=== PATIENT | female | born 1995 | race Caucasian/White ===

== ENCOUNTER 2016-09-13 12:08 | Emergency (ER) | payer MEDICAID ==
[2016-09-13 12:13] VITALS: BP 110/70; BMI 21.9
--- NOTE | 2016-09-13 13:40 | DR.GENAD ---
HPI - PCP Primary Care Physician: none - Complaint/Symptoms Chief Complaint Doctors Comments: History as stated. Chief Complaint:: "it hurts when I pee" - Source History Provided: Patient - Mode of Arrival Mode of Arrival: Ambulatory - Timing Onset of Chief Complaint: 09/07/16 PMH - PMH Past Medical History: Yes Past Medical History: Depression Past Surgical History: No - Family History History of Family Medical Conditions: Yes Family Medical History: Diabetes Mellitus - Social History Does patient currently use any type of tobacco product: No Have you used tobacco products in the last 12 months: No Type of Tobacco Use: None Does any household member use tobacco: No Alcohol Use: None Do you use any recreational Drugs:: No Lives With: Family Lives Where: Home - infectious screening In the last 2 months have you had wt loss of >10#?: NO Have you had fever, night sweats or hemotysis?: No Have you traveled outside the country in the last 6 months?: No Isolation: Standard ROS - Review of Systems Constitutional: No Symptoms Reported Eyes: No Symptoms Reported ENTM: No Symptoms Reported Respiratoy: No Symptoms Reported Cardiovascular: No Symptoms Reported Genitourinary: Dysuria, Pain. negative: Discharge Neurological: No Symptoms Reported Musculoskeletal: No Symptoms Reported Integumentary: No Symptoms Reported Hematologic/Lymphatic: No Symptoms Reported Endocrine: No Symptoms Reported Psychiatric: No Symptoms Reported All Other Systems: Reviewed and Negative PE - Vital Signs Vitals: Temperature 98.1 F Pulse Rate 100 Respiratory Rate 18 Blood Pressure [Left Arm] 123/78 Blood Pressure [Right Arm] 112/72 Blood Pressure 110/70 O2 Sat by Pulse Oximetry 99 - General Limitations: No Limitations General Appearance: Alert, In No Apparent Distress - Head Head Exam: Normal Inspection, Atraumatic - Eyes Eye exam: Normal Appearance, PERRL, EOMI - ENT ENT Exam: Normal Exam External Ear Exam: Normal External Inspection TM/Canal Exam: Bilateral Normal Nose Exam: Normal Nose Exam Mouth Exam: Normal Inspection Throat Exam: Normal Inspection - Neck Neck Exam: Normal Inspection - Chest Chest Inspection: Normal Inspection - Respiratory Respiratory Exam: Normal Lung Sounds Bilat Respiratory Exam: Bilateral Clear to Auscultation - Cardiovascular Cardiovascular Exam: Regular Rate, Normal Rhythm - Abdominal Exam Abdominal Exam: Normal Inspection Abdominal Tenderness: negative: RUQ, RLQ, LUQ, LLQ, Epigastrium, Suprapubic, Diffuse, Mild, Moderate, Severe, Other - Extremities Extremities Exam: Normal Inspection, Full ROM - Back Back Exam: Normal Inspection - Neurologic Neurological Exam: Alert, Oriented X3, CN II-XII Intact - Psychiatric Psychiatric Exam: Normal Affect, Normal Mood - Skin Skin Exam: Warm, Dry, Intact ROR - Labs Reviewed Laboratory Results Reviewed?: Yes (Urine: 4+ bld;3+leukocytes,wbc 25-50,rbc 6- 10 nitrite pos) Laboratory: Specimen Type Clean catch urine 09/13/16 13:50 Urine Color Yellow (YELLOW) 09/13/16 13:50 Urine Appearance Cloudy (CLEAR) 09/13/16 13:50 Urine pH 6.0 (5.0 - 8.0) 09/13/16 13:50 Ur Specific [place] 1.020 (1.000-1.030) 09/13/16 13:50 Urine Protein 2+ (NEGATIVE) 09/13/16 13:50 Urine Glucose (UA) Negative (NEGATIVE) 09/13/16 13:50 Urine Ketones Negative (NEGATIVE) 09/13/16 13:50 Urine Occult Blood 3+ (NEGATIVE) 09/13/16 13:50 Urine Nitrite Positive (NEGATIVE) 09/13/16 13:50 Urine Bilirubin Negative (NEGATIVE) 09/13/16 13:50 Urine Urobilinogen 1+ (NORMAL) 09/13/16 13:50 Ur Leukocyte Esterase 3+ (NEGATIVE) 09/13/16 13:50 Urine RBC 6-10 /HPF (NEGATIVE) 09/13/16 13:50 Urine WBC 25-50 /HPF (NEGATIVE) 09/13/16 13:50 Ur Squamous Epith Cells Moderate /HPF (NEGATIVE) 09/13/16 13:50 Urine Bacteria 4+ /HPF (NEGATIVE) 09/13/16 13:50 Urine Mucus Few /HPF (NEGATIVE) 09/13/16 13:50 Ur Culture Indicated? Yes/culture set up 09/13/16 13:50 - Diagnosis Discharge Problem: UTI (urinary tract infection) Qualifiers: Urinary tract infection type: acute cystitis Hematuria presence: with hematuria Qualified Code(s): N30.01 - Acute cystitis with hematuria - Discharge Plan Condition: Stable - Follow ups/Referrals Follow ups/Referrals: NFD,None [Primary Care Provider] - 3 days - Instructions
[2016-09-13 14:01] LABS: BILIRUBIN,URINE NEGATIVE (NEGATIVE); BLOOD/HEMOGLOBIN,URINE 3+ (NEGATIVE); GLUCOSE, URINE NEGATIVE (NEGATIVE); KETONES,URINE NEGATIVE (NEGATIVE); LEUKOCYTE ESTERASE ,URINE 3+ (NEGATIVE); NITRITES,URINE POSITIVE (NEGATIVE); PROTEIN,URINE 2+ (NEGATIVE); UROBILINOGEN,URINE 1+ (NORMAL)
[2016-09-13 14:17] LABS: APPEARANCE,URINE CLOUDY (CLEAR); BACTERIA,URINE 4+ /HPF (NEGATIVE); COLOR,URINE YELLOW (YELLOW); MUCUS,URINE FEW /HPF (NEGATIVE); SQUAMOUS EPITHELIAL CELL,UR MODERATE /HPF (NEGATIVE)
== END 2016-09-13 14:49 | disposition home or self-care (01) ==
LOC: ER 12:47
DX: N30.01 Acute cystitis with hematuria (principal); B96.29 Other Escherichia coli [E. coli] as the cause of diseases classified elsewhere
CPT/HCPCS: 81001; 87086; 87088; 87186; 99282

== ENCOUNTER 2016-10-27 21:43 | Emergency (ER) | payer MEDICAID ==
[2016-10-27 21:45] VITALS: BP 110/70
[2016-10-27 21:53] VITALS: BMI 19.7
[2016-10-27] MEDS ORDERED: NS 1000 ML 1,000 ML IV ONE (22:11)
--- NOTE | 2016-10-27 22:11 | DR.GENAD ---
HPI - PCP Primary Care Physician: ESPINOZA - Complaint/Symptoms Chief Complaint Doctors Comments: Patient admits to diarrhea most of the day. now wit6h skin rash. Denies fever or vomiting. Chief Complaint:: "SONALI BEEN HURTIN IN MY STOMACH AND HAVING DIARRHEA AND NOW I THINK I MUST HAVE A RASH ON MY BOTTOM BECAUSE IT BEEN HURTING." - Source History Provided: Patient - Mode of Arrival Mode of Arrival: Ambulatory - Timing Onset of Chief Complaint: 10/24/16 PMH - PMH Past Medical History: Yes Past Medical History: Depression Past Surgical History: No - Family History History of Family Medical Conditions: Yes Family Medical History: Diabetes Mellitus - Social History Alcohol Use: None Do you use any recreational Drugs:: No Lives Where: Home - infectious screening Have you traveled outside the country in the last 6 months?: No ROS - Review of Systems Eyes: No Symptoms Reported ENTM: No Symptoms Reported Respiratoy: No Symptoms Reported Cardiovascular: No Symptoms Reported Gastrointestinal/Abdominal: See HPI, Diarrhea Genitourinary: No Symptoms Reported Neurological: No Symptoms Reported Musculoskeletal: No Symptoms Reported Integumentary: No Symptoms Reported Hematologic/Lymphatic: No Symptoms Reported Endocrine: No Symptoms Reported Psychiatric: No Symptoms Reported All Other Systems: Reviewed and Negative PE - Vital Signs Vitals: Temperature 98.2 F Pulse Rate 83 Respiratory Rate 18 Blood Pressure [Left Arm] 123/78 Blood Pressure [Right Arm] 112/72 Blood Pressure 110/70 O2 Sat by Pulse Oximetry 98 - General General Appearance: Alert, In No Apparent Distress - Head Head Exam: Normal Inspection, Atraumatic - Eyes Eye exam: Normal Appearance, PERRL, EOMI - ENT ENT Exam: Normal Exam External Ear Exam: Normal External Inspection TM/Canal Exam: Bilateral Normal Nose Exam: Normal Nose Exam Mouth Exam: Normal Inspection Throat Exam: Normal Inspection - Neck Neck Exam: Normal Inspection - Chest Chest Inspection: Normal Inspection - Respiratory Respiratory Exam: Normal Lung Sounds Bilat Respiratory Exam: Bilateral Clear to Auscultation - Cardiovascular Cardiovascular Exam: Regular Rate, Normal Rhythm - Abdominal Exam Abdominal Exam: Normal Inspection Abdominal Tenderness: negative: RUQ, RLQ, LUQ, LLQ, Epigastrium, Suprapubic, Diffuse, Mild, Moderate, Severe, Other - Extremities Extremities Exam: Normal Inspection, Full ROM - Back Back Exam: Normal Inspection, Full ROM - Neurologic Neurological Exam: Alert, Oriented X3, CN II-XII Intact - Psychiatric Psychiatric Exam: Normal Affect - Skin Skin Exam: Warm, Dry, Intact ROR - Labs Reviewed Laboratory Results Reviewed?: Yes (Urine: 2+ketones;wbc 20-25,nitrite+ 3+leuk) Result Diagrams: 10/27/16 22:10/27/16 22: Laboratory: WBC 12.3 X10^3/uL (3.6-10.0) H 10/27/16 22: RBC 5.05 X10^6/uL (3.5-5.4) 10/27/16 22: Hgb 13.8 g/dL (12.0-16.0) 10/27/16: Hct 41.3 % (36.0-47.0) 10/27/16: MCV 81.8 fL (80.0-100.0) 10/27/16 22: MCH 27.3 pg (27.0-34.0) 10/27/16: MCHC 33.3 g/dL (33.0-35.0) 10/27/16 22: RDW 13.9 % (11.6-16.5) 10/27/16: Plt Count 335 X10^3/uL (150.0-450.0) 10/27/16: MPV 8.6 fL (7.4-11.0) 10/27/16 22: Neut % 62.9 % (42.0-75.0) 10/27/16: Lymph % 26.8 % (21.0-51.0) 10/27/16 22: [place] % 8.7 % (0.0-13.0) 10/27/16 22: Eos % 1.2 % (0.9-2.9) 10/27/16: Baso % 0.4 % (0.2-1.0) 10/27/16: Neut # 7.7 x10^3/uL (2.2-4.8) H 10/27/16 22: Lymph # 3.3 X10^3/uL (1.3-2.9) H 10/27/16 22: [place] # 1.1 x10^3/uL (0.3-0.8) H 10/27/16 22:27 Eos # 0.2 x10^3/uL (0.0-0.2) 10/27/16 22:27 Baso # 0.0 X10^3/uL (0.0-0.1) 10/27/16 22:27 Absolute Nucleated RBC 0.0 /100WBC 10/27/16 22:27 Sodium 140 mmol/L (136-145) 10/27/16 22:27 Corrected Sodium TNP 10/27/16 22:27 Potassium 3.7 mmol/L (3.5-5.1) 10/27/16 22:27 Chloride 103 mmol/L (98-107) 10/27/16 22:27 Carbon Dioxide 27.7 mmol/L (21-32) 10/27/16 22:27 BUN 13 mg/dL (7-18) 10/27/16 22:27 Creatinine 0.78 mg/dL (0.55-1.02) 10/27/16 22:27 Est GFR (MDRD) Af Amer > 60 (>60) 10/27/16 22:27 Est GFR (MDRD) Non-Af > 60 (>60) 10/27/16 22:27 Glucose 98 mg/dL (65-99) 10/27/16 22:27 Calcium 9.1 mg/dL (8.5-10.1) 10/27/16 22:27 Specimen Type Clean catch urine 10/27/16 22:34 Urine Color Dark yellow (YELLOW) 10/27/16 22:34 Urine Appearance Cloudy (CLEAR) 10/27/16 22:34 Urine pH 5.0 (5.0 - 8.0) 10/27/16 22:34 Ur Specific [employer] 1.025 (1.000-1.030) 10/27/16 22:34 Urine Protein 2+ (NEGATIVE) 10/27/16 22:34 Urine Glucose (UA) Negative (NEGATIVE) 10/27/16 22:34 Urine Ketones 2+ (NEGATIVE) 10/27/16 22:34 Urine Occult Blood 3+ (NEGATIVE) 10/27/16 22:34 Urine Nitrite Positive (NEGATIVE) 10/27/16 22:34 Urine Bilirubin 2+ (NEGATIVE) 10/27/16 22:34 Urine Urobilinogen 3+ (NORMAL) 10/27/16 22:34 Ur Leukocyte Esterase 3+ (NEGATIVE) 10/27/16 22:34 Urine RBC 15-20 /HPF (NEGATIVE) 10/27/16 22:34 Urine WBC 20-25 /HPF (NEGATIVE) 10/27/16 22:34 Ur Squamous Epith Cells Moderate /HPF (NEGATIVE) 10/27/16 22:34 Urine Bacteria 2+ /HPF (NEGATIVE) 10/27/16 22:34 Ur Culture Indicated? Yes/culture set up 10/27/16 22:34 H. pylori IgG Antibody Negative (NEGATIVE) 10/27/16 22:27 - Diagnosis Discharge Problem: Dehydration UTI (urinary tract infection) Qualifiers: Urinary tract infection type: acute cystitis Hematuria presence: with hematuria Qualified Code(s): N30.01 - Acute cystitis with hematuria Dermatitis, contact Qualifiers: Contact dermatitis type: irritant Contact dermatitis trigger: solvent Qualified Code(s): L24.2 - Irritant contact dermatitis due to solvents - Discharge Plan Condition: Stable - Follow ups/Referrals Follow ups/Referrals: NEETA ESPINOZA [Primary Care Provider] - 3 days - Instructions
[2016-10-27] MEDS ORDERED: NS 1000 ML 1,000 ML ONE (22:12)
[2016-10-27] MEDS ORDERED: BENTYL CAP 10 MG PO ONE ×2 (22:14→22:23)
[2016-10-27 22:36] LABS: BASOPHILS % (AUTO) 0.4 % (0.2-1.0); EOSINOPHILS # (AUTO) 0.2 x10^3/uL (0.0-0.2); EOSINOPHILS % (AUTO) 1.2 % (0.9-2.9); HEMATOCRIT 41.3 % (36.0-47.0); HEMOGLOBIN 13.8 g/dL (12.0-16.0); LYMPHOCYTES # (AUTO) 3.3 X10^3/uL (1.3-2.9); LYMPHOCYTES % (AUTO) 26.8 % (21.0-51.0); MEAN CORPUSCULAR HEMOGLOBIN 27.3 pg (27.0-34.0); MEAN CORPUSCULAR HGB CONC 33.3 g/dL (33.0-35.0); MEAN CORPUSCULAR VOLUME 81.8 fL (80.0-100.0); MEAN PLATELET VOLUME 8.6 fL (7.4-11.0); MONOCYTES # (AUTO) 1.1 x10^3/uL (0.3-0.8); MONOCYTES % (AUTO) 8.7 % (0.0-13.0); NEUTROPHILS # (AUTO) 7.7 x10^3/uL (2.2-4.8); NEUTROPHILS % (AUTO) 62.9 % (42.0-75.0); PLATELET COUNT 335 X10^3/uL (150.0-450.0); RED BLOOD COUNT 5.05 X10^6/uL (3.5-5.4); RED CELL DISTRIBUTION WIDTH 13.9 % (11.6-16.5); WHITE BLOOD COUNT 12.3 X10^3/uL (3.6-10.0)
[2016-10-27 22:39] LABS: BILIRUBIN,URINE 2+ (NEGATIVE); BLOOD/HEMOGLOBIN,URINE 3+ (NEGATIVE); GLUCOSE, URINE NEGATIVE (NEGATIVE); KETONES,URINE 2+ (NEGATIVE); LEUKOCYTE ESTERASE ,URINE 3+ (NEGATIVE); NITRITES,URINE POSITIVE (NEGATIVE); PROTEIN,URINE 2+ (NEGATIVE); UROBILINOGEN,URINE 3+ (NORMAL)
[2016-10-27 22:42] LABS: BLOOD UREA NITROGEN 13 mg/dL (7-18); CALCIUM 9.1 mg/dL (8.5-10.1); CARBON DIOXIDE 27.7 mmol/L (21-32); CHLORIDE 103 mmol/L (98-107); CREATININE 0.78 mg/dL (0.55-1.02); GLUCOSE 98 mg/dL (65-99); SODIUM 140 mmol/L (136-145); eGFR BLACK RACES > 60 (>60); eGFR NON BLACK RACES > 60 (>60)
[2016-10-27 22:46] LABS: APPEARANCE,URINE CLOUDY (CLEAR); BACTERIA,URINE 2+ /HPF (NEGATIVE); COLOR,URINE DARK YELLOW (YELLOW); RBC,URINE 15-20 /HPF (NEGATIVE); SQUAMOUS EPITHELIAL CELL,UR MODERATE /HPF (NEGATIVE)
[2016-10-27] MEDS ORDERED: BACTRIM DS TAB PO ONE ×2 (23:02→23:08)
[2016-10-27] MEDS ORDERED: BUTT CREAM (COMPOUND) TOP PRN (23:05)
[2016-10-27] MEDS ORDERED: BUTT CREAM (COMPOUND) ONE (23:09)
== END 2016-10-28 00:02 | disposition home or self-care (01) ==
LOC: ER 22:01
DX: N30.01 Acute cystitis with hematuria (principal); L24.2 Irritant contact dermatitis due to solvents; E86.0 Dehydration; B96.29 Other Escherichia coli [E. coli] as the cause of diseases classified elsewhere
CPT/HCPCS: 36415; 80048; 81001; 85025; 86677; 87086; 87088; 87186; 96365; 99283; A4222

== ENCOUNTER 2016-12-13 14:03 | Emergency (ER) | payer MEDICAID ==
[2016-12-13 14:11] VITALS: BP 108/69; BMI 19.9
--- NOTE | 2016-12-13 14:47 | DR.GENAD ---
HPI - PCP Primary Care Physician: espinoza - Complaint/Symptoms Chief Complaint Doctors Comments: Patient with a history of constipation Chief Complaint:: " I DON'T USE THE BATHROOM REGULAR AND I FELT WARM." Self Treatment fo Chief Complaint: NONE - Source History Provided: Patient - Mode of Arrival Mode of Arrival: Ambulatory - Timing Onset of Chief Complaint: 12/12/16 PMH - PMH Past Medical History: Yes Past Medical History: Depression Past Medical History Comment: CONSTAPATION Past Surgical History: No - Family History History of Family Medical Conditions: No Family Medical History: Diabetes Mellitus - Social History Does patient currently use any type of tobacco product: No Have you used tobacco products in the last 12 months: No Type of Tobacco Use: None Does any household member use tobacco: No Alcohol Use: None Do you use any recreational Drugs:: No Lives With: Friend Lives Where: Home - infectious screening In the last 2 months have you had wt loss of >10#?: NO Have you had fever, night sweats or hemotysis?: No Have you traveled outside the country in the last 6 months?: No ROS - Review of Systems Eyes: No Symptoms Reported ENTM: No Symptoms Reported Respiratoy: No Symptoms Reported Cardiovascular: No Symptoms Reported Gastrointestinal/Abdominal: Abdominal Pain, Constipation Genitourinary: No Symptoms Reported Neurological: No Symptoms Reported Musculoskeletal: No Symptoms Reported Integumentary: No Symptoms Reported Hematologic/Lymphatic: No Symptoms Reported Endocrine: No Symptoms Reported Psychiatric: No Symptoms Reported All Other Systems: Reviewed and Negative PE - Vital Signs Vitals: Temperature 98.1 F Pulse Rate 99 Respiratory Rate 20 Blood Pressure [Left Arm] 123/78 Blood Pressure [Right Arm] 112/72 Blood Pressure 108/69 O2 Sat by Pulse Oximetry 98 - General Limitations: No Limitations General Appearance: Alert, In No Apparent Distress - Head Head Exam: Normal Inspection, Atraumatic - Eyes Eye exam: Normal Appearance, PERRL, EOMI - ENT ENT Exam: Normal Exam, Normal Oropharynx External Ear Exam: Normal External Inspection TM/Canal Exam: Bilateral Normal Nose Exam: Normal Nose Exam Mouth Exam: Normal Inspection Throat Exam: Normal Inspection - Neck Neck Exam: Normal Inspection, Full ROM - Chest Chest Inspection: Normal Inspection - Respiratory Respiratory Exam: Normal Lung Sounds Bilat Respiratory Exam: Bilateral Clear to Auscultation - Cardiovascular Cardiovascular Exam: Regular Rate, Normal Rhythm - Abdominal Exam Abdominal Exam: Normal Inspection Abdominal Tenderness: Other (palbable mass LLQ). negative: RUQ, RLQ, LUQ, LLQ, Epigastrium, Suprapubic, Diffuse, Mild, Moderate, Severe - Extremities Extremities Exam: Normal Inspection - Back Back Exam: Normal Inspection, Full ROM - Neurologic Neurological Exam: Alert, Oriented X3, CN II-XII Intact - Psychiatric Psychiatric Exam: Normal Affect, Normal Mood - Skin Skin Exam: Warm, Dry, Intact ROR - XRAY XRAY Interpreted by: Radiologist (Abdomen:No evidence for acute abdominal pathology identified. Severe constipation with a very large amount of stool distending the rectum.) - Diagnosis Discharge Problem: Constipation Qualifiers: Constipation type: slow transit constipation Qualified Code(s): K59.01 - Slow transit constipation - Discharge Plan Condition: Good - Follow ups/Referrals Follow ups/Referrals: FATIMAH ESPINOZA [Primary Care Provider] - 3 days - Instructions
--- NOTE | 2016-12-13 15:23 | RAD ---
HISTORY: Abdominal pain Study: KUB Comparison: June 09, 2014 Findings: Evaluation of the abdomen demonstrates a normal bowel gas pattern. there is an extremely large stool load a present involving the entire colon but most prominently a massive amount of stool within the r ectum. No pathological soft tissue mass or calcification can be observed. The bony structures are g rossly intact. IMPRESSION: 1. No evidence for acute abdominal pathology identified. 2. Severe constipation with a a very large amount of stool distending the rectum. Reported By:
== END 2016-12-13 16:02 | disposition home or self-care (01) ==
LOC: ER 14:17
DX: K59.01 Slow transit constipation (principal)
CPT/HCPCS: 74000; 99282

== ENCOUNTER 2017-02-27 20:19 | Emergency (ER) | payer MEDICAID ==
[2017-02-27 20:27] VITALS: BP 114/72; BMI 20.8
--- NOTE | 2017-02-27 21:36 | DR.GENAD ---
HPI - PCP Primary Care Physician: GERALDO - Complaint/Symptoms Chief Complaint Doctors Comments: Patient presents with complaint of having two diarrheal stools per day for the past four days. She is applying tripple antibiotic ointment but it is not helping. The skin stark s/p bowel movement. Chief Complaint:: RASH ON BUTT AFTER DIAHRREA Self Treatment fo Chief Complaint: ANTIBIOTIC OINTMENT; IBUPROFEN - Source History Provided: Patient - Mode of Arrival Mode of Arrival: Ambulatory - Timing Onset of Chief Complaint: 02/24/17 PMH - PMH Past Medical History: No Past Medical History: Depression Past Surgical History: No - Family History History of Family Medical Conditions: No Family Medical History: Diabetes Mellitus - Social History Type of Tobacco Use: None Does any household member use tobacco: No Alcohol Use: None Do you use any recreational Drugs:: No Lives With: Family - infectious screening In the last 2 months have you had wt loss of >10#?: NO Have you had fever, night sweats or hemotysis?: No Have you traveled outside the country in the last 6 months?: No Isolation: Standard ROS - Review of Systems Eyes: No Symptoms Reported ENTM: No Symptoms Reported Respiratoy: No Symptoms Reported Cardiovascular: No Symptoms Reported Gastrointestinal/Abdominal: No Symptoms Reported Genitourinary: No Symptoms Reported Neurological: No Symptoms Reported Musculoskeletal: No Symptoms Reported Integumentary: No Symptoms Reported Hematologic/Lymphatic: No Symptoms Reported Endocrine: No Symptoms Reported Psychiatric: No Symptoms Reported All Other Systems: Reviewed and Negative PE - Vital Signs Vitals: Temperature 99.7 F Pulse Rate 125 Respiratory Rate 20 Blood Pressure [Left Arm] 123/78 Blood Pressure [Right Arm] 112/72 Blood Pressure 114/72 O2 Sat by Pulse Oximetry 99 - General Limitations: No Limitations General Appearance: Alert - Head Head Exam: Normal Inspection, Atraumatic - Eyes Eye exam: Normal Appearance, PERRL, EOMI - ENT ENT Exam: Normal Exam External Ear Exam: Normal External Inspection, Auricular Hematoma TM/Canal Exam: Bilateral Normal Nose Exam: Normal Nose Exam Mouth Exam: Normal Inspection Throat Exam: Normal Inspection - Neck Neck Exam: Normal Inspection, Full ROM - Chest Chest Inspection: Normal Inspection - Respiratory Respiratory Exam: Normal Lung Sounds Bilat Respiratory Exam: Bilateral Clear to Auscultation - Cardiovascular Cardiovascular Exam: Regular Rate - Abdominal Exam Abdominal Exam: Normal Inspection Abdominal Tenderness: negative: RUQ, RLQ, LUQ, LLQ, Epigastrium, Suprapubic, Diffuse, Mild, Moderate, Severe, Other - Extremities Extremities Exam: Normal Inspection, Full ROM - Back Back Exam: Normal Inspection - Neurologic Neurological Exam: Alert, Oriented X3, CN II-XII Intact - Psychiatric Psychiatric Exam: Normal Affect - Skin Skin Exam: Warm, Dry, Intact - Diagnosis Discharge Problem: Acute diarrhea Contact dermatitis Qualifiers: Contact dermatitis type: irritant Contact dermatitis trigger: other trigger Qualified Code(s): L24.89 - Irritant contact dermatitis due to other agents; L24.8 - Irritant contact dermatitis due to other agents - Discharge Plan Condition: Stable - Follow ups/Referrals Follow ups/Referrals: Jayy Cash [Primary Care Provider] - 3 days - Instructions
[2017-02-27] MEDS ORDERED: SILVADENE ONE (21:42)
[2017-02-27] MEDS ORDERED: SILVADENE TOP SCH (22:00)
== END 2017-02-27 21:46 | disposition home or self-care (01) ==
LOC: ER 20:30
DX: L24.89 Irritant contact dermatitis due to other agents (principal); R19.7 Diarrhea, unspecified
CPT/HCPCS: 99282

== ENCOUNTER 2017-05-17 23:28 | Emergency (ER) | payer MEDICAID ==
[2017-05-17 23:33] VITALS: BMI 21.9
[2017-05-18] MEDS ORDERED: TORADOL 30 MG VIAL IVP ONE (00:34)
[2017-05-18] MEDS ORDERED: NS 1000 ML 1,000 ML ONE ×2 (00:36→01:28)
[2017-05-18] MEDS ORDERED: TORADOL 30 MG VIAL ONE (00:36)
--- NOTE | 2017-05-18 00:37 | DR.GENAD ---
HPI - PCP Primary Care Physician: JAYY CHOW - Complaint/Symptoms Chief Complaint Doctors Comments: Patient presents with generalized muscle aches and pain; fever, nausea. Chief Complaint:: HEAD & CHEST HURTING; COUGHING; THROWING; FEVER (101.9) - Source History Provided: Patient - Mode of Arrival Mode of Arrival: Ambulatory - Timing Onset of Chief Complaint: 05/16/17 PMH - PMH Past Medical History: No Past Medical History: Depression Past Surgical History: No - Family History History of Family Medical Conditions: No Family Medical History: Diabetes Mellitus - Social History Alcohol Use: None Do you use any recreational Drugs:: No Lives With: Family - infectious screening In the last 2 months have you had wt loss of >10#?: NO Have you had fever, night sweats or hemotysis?: No Have you traveled outside the country in the last 6 months?: No Isolation: Standard ROS - Review of Systems Eyes: No Symptoms Reported ENTM: No Symptoms Reported Respiratoy: No Symptoms Reported Cardiovascular: No Symptoms Reported Gastrointestinal/Abdominal: No Symptoms Reported Genitourinary: No Symptoms Reported Neurological: No Symptoms Reported Musculoskeletal: No Symptoms Reported Integumentary: No Symptoms Reported Hematologic/Lymphatic: No Symptoms Reported Endocrine: No Symptoms Reported Psychiatric: No Symptoms Reported All Other Systems: Reviewed and Negative PE - Vital Signs Vitals: Temperature 99.2 F Pulse Rate [Left Radial] 134 Pulse Rate 138 Respiratory Rate 18 Blood Pressure [Left Arm] 98/53 Blood Pressure [Right Arm] 112/72 Blood Pressure 89/51 O2 Sat by Pulse Oximetry 100 - General General Appearance: In No Apparent Distress, Other (ill appearing) - Head Head Exam: Normal Inspection, Atraumatic - Eyes Eye exam: Normal Appearance, PERRL, EOMI - ENT ENT Exam: Normal Exam External Ear Exam: Normal External Inspection TM/Canal Exam: Bilateral Normal Nose Exam: Normal Nose Exam Mouth Exam: Normal Inspection Throat Exam: Normal Inspection - Neck Neck Exam: Normal Inspection - Chest Chest Inspection: Normal Inspection - Respiratory Respiratory Exam: Normal Lung Sounds Bilat Respiratory Exam: Bilateral Clear to Auscultation - Cardiovascular Cardiovascular Exam: Tachycardia - Abdominal Exam Abdominal Exam: Normal Inspection Abdominal Tenderness: negative: RUQ, RLQ, LUQ, LLQ, Epigastrium, Suprapubic, Diffuse, Mild, Moderate, Severe, Other - Extremities Extremities Exam: Normal Inspection, Full ROM - Back Back Exam: Normal Inspection - Neurologic Neurological Exam: Alert, Oriented X3, CN II-XII Intact - Psychiatric Psychiatric Exam: Normal Affect - Skin Skin Exam: Warm, Dry, Intact Course - Reevaluation 1st: Improved - Education/Counseling Educated On: Treatment, Diagnosis, Prognosis - Diagnosis Discharge Problem: Influenza - Discharge Plan Condition: Stable - Follow ups/Referrals Follow ups/Referrals: Jayy Chow [Primary Care Provider] - 3 days - Instructions
[2017-05-18] MEDS ORDERED: ZOFRAN INJ 4 MG VIAL IVP ONE (00:38)
[2017-05-18] MEDS ORDERED: ZOFRAN INJ 4 MG VIAL ONE (00:50)
[2017-05-18] MEDS ORDERED: NS 1000 ML 1,000 ML IV ONE ×2 (00:51→01:31)
[2017-05-18 01:33] VITALS: BP 98/53
== END 2017-05-18 02:02 | disposition home or self-care (01) ==
LOC: ER 23:28
DX: J10.1 Influenza due to other identified influenza virus with other respiratory manifestations (principal)
CPT/HCPCS: 96365; 96374; 96375; 99282; 99283; A4222; J1885; J2405

== ENCOUNTER 2017-05-20 13:56 | Emergency (ER) | payer MEDICAID ==
[2017-05-20 14:00] VITALS: BP 101/61; BMI 21.9
--- NOTE | 2017-05-20 14:58 | DR.URIAD ---
HPI - Time Seen Time seen: 15:00 - PCP Primary Care Physician: GERALDO - HPI Comment HPI Comment: WORSE TODAY. - Complaint Chief Complaint Doctors Comments: SORE THROAT, BODYACHE,N/V/D AND COUGH AND CONGESTION TIMES 3 DAYS. Chief Complaint:: PT. C/O SORE THROAT, COUGH, HEADACHE, FEVER, CHILLS, BODY ACHES, N/V/D. SYMPTOMS STARTED ON SUNDAY. PT. CAME TO THE ER TO BE SEEN. - Reviewed Nurses Notes Reviewed: Yes - Source History Provided: Patient - Mode of Arrival Mode of Arrival: Ambulatory - Timing Onset of Chief Complaint: 05/17/17 - Context Recent Treated Infections: None History of Respiratory: None - Quality Quality of Cough: Productive, Yellow Rhinorrhea: Green Shortness of Breath: Moderate - Associated Signs and Symptoms Other Signs and Symptoms: Cough, Fever, Myalgias, Sore Throat PMH - PMH Past Medical History: Yes Past Medical History: Depression Past Surgical History: No Surgical History: No History - Family History History of Family Medical Conditions: Yes Family Medical History: Diabetes Mellitus - Social History Does patient currently use any type of tobacco product: No Have you used tobacco products in the last 12 months: No Type of Tobacco Use: None Does any household member use tobacco: No Alcohol Use: None Do you use any recreational Drugs:: No Lives With: Mom Lives Where: Home - infectious screening In the last 2 months have you had wt loss of >10#?: NO Have you had fever, night sweats or hemotysis?: No Have you traveled outside the country in the last 6 months?: No Isolation: Standard ROS - Review of Systems Constitutional: Fever, Weakness, Fatigue Eyes: negative: Eye Pain, Discharge ENTM: Nose Discharge, Nose Congestion, Throat Pain. negative: Ear Pain Respiratoy: Productive Cough Cardiovascular: No Symptoms Reported Gastrointestinal/Abdominal: No Symptoms Reported Genitourinary: No Symptoms Reported Neurological: No Symptoms Reported Musculoskeletal: Muscle Pain Integumentary: No Symptoms Reported Hematologic/Lymphatic: No Symptoms Reported Endocrine: No Symptoms Reported All Other Systems: Reviewed and Negative PE - Vital Signs Vitals: Temperature 99.7 F Pulse Rate 122 Respiratory Rate 20 Blood Pressure [Left Arm] 98/53 Blood Pressure [Right Arm] 112/72 Blood Pressure 101/61 O2 Sat by Pulse Oximetry 99 - General Limitations: No Limitations General Appearance: Alert - Head Head Exam: Normal Inspection - Eyes Eye exam: Normal Appearance - ENT ENT Exam: Normal External Ear Exam External Ear Exam: Normal External Inspection TM/Canal Exam: Bilateral Normal Nasal Speculum Exam: Bilateral Normal Mouth Exam: Normal Inspection Throat Exam: Tonsillar Erythema. negative: Tonsillomegaly, Tonsillar Exudate - Chest Chest Inspection: Symmetric Chest Wall Rise - Respiratory Respiratory Exam: Normal Lung Sounds Bilat Respiratory Exam: Bilateral Clear to Auscultation - Cardiovascular Cardiovascular Exam: Regular Rate, Normal Rhythm, Normal Heart Sounds - Abdominal Exam Abdominal Exam: Normal Bowel Sounds, Soft. negative: Tenderness - Extremeties Extremities Exam: Normal Inspection - Back Back Exam: Normal Inspection - Neurologic Neurological Exam: Alert, Oriented X3 - Psychiatric Psychiatric Exam: Normal Affect, Normal Mood - Skin Skin Exam: Normal Color MDM - Differential Diagnosis Differential Diagnosis: Influenza A, Otitis media, Streptococcal pharyngitis, Viral pharyngitis, Pneumonia, Sinsusitis, URI Course - Treatment Treatment: SEE ORDERS. - Education/Counseling Education/Counseling: Patient, Education Educated On: Diagnosis, Needs for Follow Up ROR - Labs Reviewed Laboratory Results Reviewed?: Yes Result Diagrams: 05/20/17 15:30 05/20/17 15:30 Laboratory: WBC 9.2 X10^3/uL (3.6-10.0) 05/20/17 15:30 RBC 3.91 X10^6/uL (3.5-5.4) 05/20/17 15:30 Hgb 11.4 g/dL (12.0-16.0) L 05/20/17 15:30 Hct 32.9 % (36.0-47.0) L 05/20/17 15:30 MCV 84.0 fL (80.0-100.0) 05/20/17 15:30 MCH 29.0 pg (27.0-34.0) 05/20/17 15:30 MCHC 34.6 g/dL (33.0-35.0) 05/20/17 15:30 RDW 13.7 % (11.6-16.5) 05/20/17 15:30 Plt Count 273 X10^3/uL (150.0-450.0) 05/20/17 15:30 MPV 7.1 fL (7.4-11.0) L 05/20/17 15:30 Neut % 81.5 % (42.0-75.0) H 05/20/17 15:30 Lymph % 11.5 % (21.0-51.0) L 05/20/17 15:30 [place] % 6.6 % (0.0-13.0) 05/20/17 15:30 Eos % 0.1 % (0.9-2.9) L 05/20/17 15:30 Baso % 0.3 % (0.2-1.0) 05/20/17 15:30 Neut # 7.5 x10^3/uL (2.2-4.8) H 05/20/17 15: Lymph # 1.1 X10^3/uL (1.3-2.9) L 05/20/17 15:30 [place] # 0.6 x10^3/uL (0.3-0.8) 05/20/17 15:30 Eos # 0.0 x10^3/uL (0.0-0.2) 05/20/17 15: Baso # 0.0 X10^3/uL (0.0-0.1) 05/20/17 15:30 Absolute Nucleated RBC 0.0 /100WBC 05/20/17 15:30 Sodium 136 mmol/L (136-145) 05/20/17 15:30 Corrected Sodium TNP 05/20/17 15:30 Potassium 3.6 mmol/L (3.5-5.1) 05/20/17 15:30 Chloride 100 mmol/L (98-107) 05/20/17 15:30 Carbon Dioxide 28.4 mmol/L (21-32) 05/20/17 15:30 BUN 4 mg/dL (7-18) L 05/20/17 15:30 Creatinine 0.47 mg/dL (0.55-1.02) L 05/20/17 15:30 Est GFR (MDRD) Af Amer > 60 (>60) 05/20/17 15:30 Est GFR (MDRD) Non-Af > 60 (>60) 05/20/17 15:30 Glucose 95 mg/dL (65-99) 05/20/17 15:30 Calcium 8.2 mg/dL (8.5-10.1) L 05/20/17 15:30 Corrected Calcium 9.2 mg/dL (8.5-10.1) 05/20/17 15:30 Total Bilirubin 0.30 mg/dL (0.2-1.0) 05/20/17 15:30 AST 25 Units/L (15-37) 05/20/17 15:30 ALT 18 Units/L (12-78) 05/20/17 15:30 Alkaline Phosphatase 90 Units/L (46-116) 05/20/17 15:30 Total Protein 6.7 g/dL (6.4-8.2) 05/20/17 15:30 Albumin 2.8 g/dL (3.4-5.0) L 05/20/17 15:30 Globulin 3.9 g/dL (2.5-4.5) 05/20/17 15:30 Albumin/Globulin Ratio 0.7 Ratio (1.1-2.1) L 05/20/17 15:30 HCG, Qual Positive >10 mIU/mL 05/20/17 15:30 Influenza Type A (PCR) Positive (NEGATIVE) A 05/20/17 15:45 Influenza Type B (PCR) Negative (NEGATIVE) 05/20/17 15:45 S. pyogenes (TEM-PCR) Not detected (NOT DETECT) 05/20/17 15:45 - Diagnosis Discharge Problem: Influenza, - Discharge Plan Disposition: 01 HOME, SELF-CARE Condition: Stable Prescriptions: Ondansetron [Zofran ODT 8 mg] 8 mg PO Q8H PRN #12 tab PRN Reason: Nausea/Vomiting - Follow ups/Referrals Follow ups/Referrals: Jayy Cash [Primary Care Provider] - 3 days LEXX HERNANDEZ [STAFF PHYSICIAN] - 3 days - Instructions Instructions: Influenza, Adult, [id number], Test Information, and Influenza Additional Instructions: RETURN TO ED IF WORSE. FILL TAMIFLU PRESCRIPTION YOU HAVE AT HOME AND TAKE IT PRESCRIBE.
[2017-05-20 15:47] LABS: BASOPHILS % (AUTO) 0.3 % (0.2-1.0); EOSINOPHILS % (AUTO) 0.1 % (0.9-2.9); HEMATOCRIT 32.9 % (36.0-47.0); HEMOGLOBIN 11.4 g/dL (12.0-16.0); LYMPHOCYTES # (AUTO) 1.1 X10^3/uL (1.3-2.9); LYMPHOCYTES % (AUTO) 11.5 % (21.0-51.0); MEAN CORPUSCULAR HGB CONC 34.6 g/dL (33.0-35.0); MEAN PLATELET VOLUME 7.1 fL (7.4-11.0); MONOCYTES # (AUTO) 0.6 x10^3/uL (0.3-0.8); MONOCYTES % (AUTO) 6.6 % (0.0-13.0); NEUTROPHILS # (AUTO) 7.5 x10^3/uL (2.2-4.8); NEUTROPHILS % (AUTO) 81.5 % (42.0-75.0); PLATELET COUNT 273 X10^3/uL (150.0-450.0); RED BLOOD COUNT 3.91 X10^6/uL (3.5-5.4); RED CELL DISTRIBUTION WIDTH 13.7 % (11.6-16.5); WHITE BLOOD COUNT 9.2 X10^3/uL (3.6-10.0)
[2017-05-20 15:55] LABS: SERUM PREGNANCY TEST, QUAL POSITIVE >10 mIU/mL
[2017-05-20 15:59] LABS: ALANINE AMINOTRANSFERASE 18 Units/L (12-78); ALBUMIN 2.8 g/dL (3.4-5.0); ALKALINE PHOSPHATASE 90 Units/L (46-116); ASPARTATE AMINO TRANSFERASE 25 Units/L (15-37); BLOOD UREA NITROGEN 4 mg/dL (7-18); CALCIUM 8.2 mg/dL (8.5-10.1); CARBON DIOXIDE 28.4 mmol/L (21-32); CHLORIDE 100 mmol/L (98-107); COR CA(FOR HYPOALB) 9.2 mg/dL (8.5-10.1); CREATININE 0.47 mg/dL (0.55-1.02); SODIUM 136 mmol/L (136-145); TOTAL PROTEIN 6.7 g/dL (6.4-8.2); eGFR BLACK RACES > 60 (>60); eGFR NON BLACK RACES > 60 (>60)
== END 2017-05-20 16:17 | disposition home or self-care (01) ==
LOC: ER 14:06
DX: J10.1 Influenza due to other identified influenza virus with other respiratory manifestations (principal); Z3A.00 Weeks of gestation of pregnancy not specified
CPT/HCPCS: 36415; 80053; 84703; 85025; 87502; 87651; 99282; 99284

== ENCOUNTER → 2017-07-13 | Outpatient (CLI) | payer MEDICAID ==
--- NOTE | 2017-07-13 15:51 | US ---
Examination: OB ultrasound Clinical History: age. Technique: Real-time patiño scale ultrasound was used to evaluate the transabdominally. Comparison: None available. Findings: There is a single live intrauterine in a cephalic presentation. The placenta is posteriorly located without previa. The maternal cervix length measures approximately cm (typically>3 cm). The amniotic fluid volume is average. cardiac activity was identified at a rate of 166 beats per mi nute. The visualized anatomy including the 7 mm lateral ventricles (Normal <10 mm), stomach, bladder, coronal face, lips and nose and facial profile are within normal limits. The upper and lower extremi ties are seen. The four-chamber heart, cord insertion, three-vessel cord, cisterna magna, kidneys and spine are subo ptimally visualized or not visualized at all. A 1.1 x 0.5 cm choroid plexus cyst is noted. Choroid plexus cysts are often seen in normal pregnancie s. There is however an association of choroid plexus cysts with trisomy 18. Continued follow-up is th erefore recommended. growth parameters are as follows: BPD 5.5 cm 22 weeks 5 days Head circumference 20.5 cm 22 weeks 4 days Abdominal circumference 17.6 cm 22 weeks 3 days Femur length 3.9 cm 22 weeks 4 days Estimated weight 513 gram (42 percentile) HC/AC 1.17 Expected date of delivery by today's ultrasound 11/12/2017. Impression: 1. There is a single live intrauterine in a cephalic presentation with a mean gestational a ge by today's ultrasound of 22 weeks 4 days and expected date of delivery of 11/12/2017. 2. Multiple structures are suboptimally visualized all not visualized at all. Continued follow- up is recommended. 3. A 1.1 x 0.5 cm choroid plexus cyst is noted. Choroid plexus cysts are often seen in normal pregnan cies. There is however an association of choroid plexus cysts with trisomy 18. Continued follow-up is therefore recommended. Reported By:
== END | disposition home or self-care (01) | DRG 782 ==
LOC: RAD 12:24
PROVIDERS: ATTEND Obstetrics & Gynecology Obstetrics
DX: O26.842 Uterine size-date discrepancy, second trimester (principal); Z3A.22 22 weeks gestation of pregnancy; G93.0 Cerebral cysts
CPT/HCPCS: 76805

== ENCOUNTER 2017-07-15 17:32 | Emergency (ER) | payer MEDICAID ==
[2017-07-15 17:37] VITALS: BP 122/66
[2017-07-15 18:07] LABS: BILIRUBIN,URINE NEGATIVE (NEGATIVE); BLOOD/HEMOGLOBIN,URINE NEGATIVE (NEGATIVE); GLUCOSE, URINE NEGATIVE (NEGATIVE); KETONES,URINE NEGATIVE (NEGATIVE); LEUKOCYTE ESTERASE ,URINE 2+ (NEGATIVE); NITRITES,URINE NEGATIVE (NEGATIVE); PROTEIN,URINE NEGATIVE (NEGATIVE); UROBILINOGEN,URINE NORMAL (NORMAL)
[2017-07-15 18:17] LABS: APPEARANCE,URINE CLEAR (CLEAR); COLOR,URINE YELLOW (YELLOW)
[2017-07-15 18:19] LABS: RBC,URINE 0-2 /HPF (NONE SEEN); SQUAMOUS EPITHELIAL CELL,UR FEW /HPF (NEGATIVE)
[2017-07-15 18:20] LABS: AMORPHOUS SEDIMENT,UR TRACE /HPF (NEGATIVE); BACTERIA,URINE 1+ /HPF (NEGATIVE)
[2017-07-15] MEDS ORDERED: VALTREX TAB 1 GM PO ONE ×2 (18:34→18:45)
--- NOTE | 2017-07-15 18:35 | DR.BITE ---
HPI - Time Seen Time seen: 17:50 - PCP Primary Care Physician: GERALDO ESPINAL - Complaint/Symptoms Chief Complaint:: PT C/O 2 DAYS AGO SEEING A BUMP TO HER LEFT LABIA AREA THAT WILL NOT GO AWAY...BR Self Treatment fo Chief Complaint: ABX,, FOR UTI AND PRENANTAL PT IS 5 MONTHS PREG LANEY 11/12/17 ... - Nurses notes reviewed Nurses Notes Review: Yes - Source History Provided: Patient - Mode of Arrival Mode of Arrival: Ambulatory - Timing Onset of Chief Complaint: 07/13/17 PMH - PMH Past Medical History: No Past Medical History: Depression Past Surgical History: No Surgical History: No History - Family History History of Family Medical Conditions: No Family Medical History: Diabetes Mellitus - Social History Does patient currently use any type of tobacco product: No Have you used tobacco products in the last 12 months: No Type of Tobacco Use: None Does any household member use tobacco: No Alcohol Use: None Do you use any recreational Drugs:: No Lives With: Family Lives Where: Home - infectious screening In the last 2 months have you had wt loss of >10#?: NO Have you had fever, night sweats or hemotysis?: No Have you traveled outside the country in the last 6 months?: No Isolation: Standard ROS - Review of Systems Constitutional: No Symptoms Reported Eyes: No Symptoms Reported ENTM: No Symptoms Reported Respiratoy: No Symptoms Reported Cardiovascular: No Symptoms Reported Gastrointestinal/Abdominal: No Symptoms Reported Genitourinary: Other (bump on left labia) Neurological: No Symptoms Reported Musculoskeletal: No Symptoms Reported Integumentary: No Symptoms Reported Hematologic/Lymphatic: No Symptoms Reported Endocrine: No Symptoms Reported Psychiatric: No Symptoms Reported All Other Systems: Reviewed and Negative PE - Vital Signs Vital Signs: Temp Pulse Resp BP BP BP Pulse Ox 07/15/17 17:34 98.2 F 127 H 18 122/66 97 05/20/17 13:57 101/61 05/18/17 01:30 98/53 06/19/14 04:00 112/72 - Constitutional Limitations: No Limitations General Appearance: Alert, In No Apparent Distress - Head Head Exam: Normal Inspection - Eyes Eye exam: Normal Appearance - ENT ENT Exam: Normal Exam - Neck Neck Exam: Normal Inspection - Chest Chest Inspection: Normal Inspection - Respiratory Respiratory Exam: Normal Lung Sounds Bilat - Cardiovascular Cardiovascular Exam: Regular Rate, Normal Rhythm, +S1, +S2 - Abdominal Exam Abdominal Exam: Normal Inspection, Normal Bowel Sounds, Soft - Extremities Extremities Exam: Normal Inspection - Back Back Exam: Normal Inspection - Neurologic Neurological Exam: Alert, Oriented X3 - Psychiatric Psychiatric Exam: Normal Affect, Normal Mood - Skin Skin Exam: Other (A 0.5 mm ulcerated lesion with yellow crater, indurated, there is no drainage at present. ) ROR - Labs Reviewed Laboratory: Specimen Type Random urine 07/15/17 17:52 Urine Color Yellow (YELLOW) 07/15/17 17:52 Urine Appearance Clear (CLEAR) 07/15/17 17:52 Urine pH 7.0 (5.0 - 8.0) 07/15/17 17:52 Ur Specific [place] 1.010 (1.000-1.030) 07/15/17 17:52 Urine Protein Negative (NEGATIVE) 07/15/17 17:52 Urine Glucose (UA) Negative (NEGATIVE) 07/15/17 17:52 Urine Ketones Negative (NEGATIVE) 07/15/17 17:52 Urine Occult Blood Negative (NEGATIVE) 07/15/17 17:52 Urine Nitrite Negative (NEGATIVE) 07/15/17 17:52 Urine Bilirubin Negative (NEGATIVE) 07/15/17 17:52 Urine Urobilinogen Normal (NORMAL) 07/15/17 17:52 Ur Leukocyte Esterase 2+ (NEGATIVE) 07/15/17 17:52 Urine RBC 0-2 /HPF (NONE SEEN) 07/15/17 17:52 Urine WBC 3-5 /HPF (NONE SEEN) 07/15/17 17:52 Ur Squamous Epith Cells Few /HPF (NEGATIVE) 07/15/17 17:52 Amorphous Sediment Trace /HPF (NEGATIVE) 07/15/17 17:52 Urine Bacteria 1+ /HPF (NEGATIVE) 07/15/17 17:52 Ur Culture Indicated? No/not indicated 07/15/17 17:52 - Diagnosis Discharge Problem: Genital herpes affecting in second trimester - Discharge Plan Disposition: 01 HOME, SELF-CARE Condition: Stable - Follow ups/Referrals Follow ups/Referrals: Jayy Cash [Primary Care Provider] - 3 days - Instructions Instructions: and Genital Herpes
== END 2017-07-15 19:03 | disposition home or self-care (01) ==
LOC: ER 17:41
DX: A60.09 Herpesviral infection of other urogenital tract (principal); Z3A.00 Weeks of gestation of pregnancy not specified
CPT/HCPCS: 81001; 99282

== ENCOUNTER 2017-11-05 06:15 | Inpatient (IN) ==
[2017-11-05] MEDS ORDERED: LR 1000 ML IV 1,000 ML IV ONE ×2 (06:32→16:00)
[2017-11-05] MEDS ORDERED: FENTANYL INJ 100 mcg ONE (06:33)
[2017-11-05] MEDS ORDERED: XYLOCAINE 1 % (PLAIN) ONE (06:33)
[2017-11-05] MEDS ORDERED: PITOCIN ONE (06:33)
[2017-11-05] MEDS ORDERED: D5LR 1L W PITOCIN 10 UNITS/L 10 UNITS/1,000 ML BAG IV ONE (06:33)
[2017-11-05] MEDS ORDERED: ADRENALINE CHL INJ ONE ×2 (06:34→16:00)
[2017-11-05] MEDS ORDERED: NAROPIN EPIDURAL 0.2% + FENTANYL 90MCG 60 ML EPI ONE (06:34)
[2017-11-05] MEDS ORDERED: D5 1/2 NS 1000 ML 1,000 ML IV ONE (06:34)
[2017-11-05] MEDS ORDERED: D5 1/2 NS 1000 ML 1,000 ML IV SCH (06:49)
[2017-11-05] MEDS ORDERED: REGLAN INJ 10 MG VIAL IVP PRN ×2 (06:49→17:29)
[2017-11-05] MEDS ORDERED: NUBAIN INJ 200 MG VIAL MULTIDOSE IVP PRN (06:49)
[2017-11-05] MEDS ORDERED: D5LR 1L W PITOCIN 10 UNITS/L 10 UNITS/1,000 ML BAG IV PRN (06:49)
[2017-11-05] MEDS ORDERED: PITOCIN IVP ONE (06:49)
[2017-11-05] MEDS ORDERED: PHENERGAN INJ 25 MG IV PRN (06:49)
[2017-11-05] MEDS ORDERED: MORPHINE SULFATE INJ 2 MG INJ IVP PRN (06:49)
--- NOTE | 2017-11-05 07:20 | DR.OB ---
OB Quick Note - Assessment/Plan Assessment/Plan: L&D 11/05/17 at 7:00am S-No complaint. O-Afebrile,VSS [id number] with good LTV, +accel, no decel. CTX=irregular, mild CVX=2cm/50%/-1/VTX AROM with clear fluid. IUPC and FSE placed. A-IUP at 39 0/7 weeks for induction P-Begin pitocin induction Anticipate
--- NOTE | 2017-11-05 12:04 | DR.OB ---
OB Quick Note - Assessment/Plan Assessment/Plan: L&D 11/05/17 at 11:50am Pitocin=20mu/min. S-No complaint. s/p epidural. O-Afebrile,VSS [id number] with good LTV, +accel, no decel. CTX=q 1 1/2 to 2 min., about 45-55mmHg CVX=3cm/75%/-1 A-IUP at 39 0/7 weeks for induction P-Cont. pitocin induction Anticipate
[2017-11-05] MEDS ORDERED: REGLAN INJ 10 MG VIAL ONE (13:28)
[2017-11-05] MEDS ORDERED: ANCEF 1 GRAM IV PREMIX* 1 G/50 ML BAG IV ONE (15:51)
[2017-11-05] MEDS ORDERED: DURAMORPH ONE (16:00)
--- NOTE | 2017-11-05 16:01 | DR.OB ---
OB Quick Note - Assessment/Plan Assessment/Plan: L&D 11/05/17 at 3:55pm Pitocin=20mu/min. S-No complaint. O-Afebrile,VSS [id number] with good LTV, +accel, no decel. CTX=q 1 1/2 to 2 min., about 35-55mmHg CVX=3-4cm/75%/-1/VTX (no change in 4 hours) A-IUP at 39 0/7 weeks with failure to dilate P-To C/S.
[2017-11-05] MEDS: D5 1/2 NS 1L W PITOCIN 20 UNITS/L 20 UNITS/1,000 ML BAG IV ONE ×2 (16:30→17:00)
[2017-11-05] MEDS ORDERED: D5 1/2 NS 1L W PITOCIN 20 UNITS/L 20 UNITS/1,000 ML BAG IV ONE (17:01)
[2017-11-05] MEDS ORDERED: BENADRYL INJ 50 MG VIAL IVP PRN (17:29)
[2017-11-05] MEDS ORDERED: ZOFRAN INJ 4 MG VIAL IVP PRN ×2 (17:29→17:33)
[2017-11-05] MEDS ORDERED: PHENERGAN INJ 25 MG IVP PRN (17:29)
[2017-11-05] MEDS ORDERED: NARCAN INJ IVP PRN (17:33)
[2017-11-05] MEDS ORDERED: PERCOCET TAB 5/325 MG PO PRN (17:33)
[2017-11-05] MEDS ORDERED: MYLICON TAB 80 MG CHEW PO PRN (17:33)
[2017-11-05] MEDS ORDERED: ADACEL or BOOSTRIX TDaP VACCINE IM ONE (17:33)
[2017-11-05] MEDS ORDERED: TORADOL 30 MG VIAL IVP PRN (17:33)
[2017-11-05] MEDS ORDERED: D5 1/2 NS 1000 ML 1,000 ML with PITOCIN 20 UNITS IV SCH ×2 (18:00)
[2017-11-05] MEDS: ZANTAC PO SCH (21:05)
[2017-11-05] MEDS: BENADRYL INJ 50 MG VIAL IVP PRN (21:46)
[2017-11-06] MEDS: BENADRYL INJ 50 MG VIAL IVP PRN (01:50)
[2017-11-06 04:23] LABS: HEMATOCRIT 27.3 % (36.0-47.0); HEMOGLOBIN 9.3 g/dL (12.0-16.0)
[2017-11-06] MEDS ORDERED: BENADRYL INJ 50 MG VIAL IVP PRN (07:47)
[2017-11-06] MEDS: PRENATAL PLUS PO SCH (08:38)
[2017-11-06] MEDS: COLACE CAP 100 MG PO SCH ×2 (08:43→22:37)
[2017-11-06] MEDS: ZANTAC PO SCH ×2 (08:43→22:39)
[2017-11-06] MEDS: BACTROBAN TOPICAL OINT TOP SCH ×2 (13:05→22:40)
[2017-11-06] MEDS: MOTRIN TAB 800 MG PO PRN (13:05)
[2017-11-06] MEDS ORDERED: ZOFRAN INJ 4 MG VIAL ONE (15:52)
[2017-11-06] MEDS ORDERED: VERSED ONE (15:52)
[2017-11-06] MEDS ORDERED: DIPRIVAN VIAL ONE (15:52)
[2017-11-06] MEDS ORDERED: XYLOCAINE 2 % (PLAIN) ONE (15:52)
[2017-11-06] MEDS ORDERED: XYLOCAINE 2% ONE (15:52)
[2017-11-06] MEDS: FERROUS GLUCONATE PO SCH (16:53)
[2017-11-07] MEDS: BACTROBAN TOPICAL OINT TOP SCH ×2 (05:34→16:02)
[2017-11-07] MEDS: FERROUS GLUCONATE PO SCH (06:23)
[2017-11-07] MEDS: MOTRIN TAB 800 MG PO PRN ×2 (07:42→14:25)
[2017-11-07] MEDS: ZANTAC PO SCH (08:24)
[2017-11-07] MEDS: PRENATAL PLUS PO SCH (08:24)
[2017-11-07] MEDS: COLACE CAP 100 MG PO SCH (08:24)
[2017-11-07 13:48] VITALS: BP 104/66
== END 2017-11-07 16:00 | disposition home or self-care (01) | DRG 765 ==
LOC: LD 06:15 → MED/SURG 17:48
PROVIDERS: ADMIT Specialist; ATTEND Specialist
DX: O28.8 Other abnormal findings on antenatal screening of mother; O98.22 Gonorrhea complicating childbirth; D50.0 Iron deficiency anemia secondary to blood loss (chronic); Z3A.39 39 weeks gestation of pregnancy; O62.0 Primary inadequate contractions; O99.89 Other specified diseases and conditions complicating pregnancy, childbirth and the puerperium; A54.89 Other gonococcal infections; O36.0930 Maternal care for other rhesus isoimmunization, third trimester, not applicable or unspecified; O99.02 Anemia complicating childbirth; Z37.0 Single live birth
CPT/HCPCS: 36415; 80048; 80307; 81001; 85014; 85018; 85025; 86592; 86850; 86900; 86901; 90715; A4216; A4222; S0197; G0434; J0171; J0690; J1200; J2250; J2405; J2590; J2704; J2765; J3010; J3490; J7120; S5010